=== PATIENT | male | born 1995 | race Caucasian/White ===

== ENCOUNTER 2018-02-26 20:02 | Emergency (ER) | payer OTHER ==
[~2018-02-26] VITALS: Ht 175.3 cm; Wt 61.2 kg
[~2018-02-26 20:02] MED LIST: IBUPROFEN 400400 M2 PO; METADATE CD40 MG PO; NOHOMEMEDICATIONS; ZOFRAN ODT4 MG PO
[2018-02-26] MEDS ORDERED: IBUPROFEN 800800 M1 PO (21:07)
[2018-02-26] MEDS ORDERED: HYDROCODONE-AP1 EAC6 PO (21:07)
[2018-02-26 21:23] VITALS: BP 110/72
== END 2018-02-26 21:24 | disposition home or self-care (01) ==
LOC: ER 20:02
DX: S40.021A Contusion of right upper arm, initial encounter (principal); F17.210 Nicotine dependence, cigarettes, uncomplicated; V89.2XXA Person injured in unspecified motor-vehicle accident, traffic, initial encounter; Y93.89 Activity, other specified; Y92.89 Other specified places as the place of occurrence of the external cause; Y99.8 Other external cause status

== ENCOUNTER 2018-11-21 04:23 | Emergency (ER) | payer OTHER ==
[~2018-11-21] VITALS: Ht 180.3 cm; Wt 61.2 kg
[~2018-11-21 04:23] MED LIST changes: +HYDROCODONE-AP1 EAC6 PO; +IBUPROFEN 800800 M1 PO
[2018-11-21 04:58] LABS: HEMATOCRIT 45.5 % (42.0-52.0); HEMOGLOBIN 15.4 gm/dL (14.0-18.0); MCH 31.6 pg (26.0-34.0); MCHC 33.8 g/dL (28.0-37.0); MCV 93.5 fL (80.0-100.0); PLATELET COUNT 284 thou/uL (150-400); RBC 4.86 mil/uL (4.50-6.00); RDW 13.4 % (10.5-14.5); WBC 7.6 thou/uL (4.0-11.0)
[2018-11-21 05:07] LABS: CALCIUM 9.2 mg/dL (8.5-10.1); CREATININE 0.9 mg/dL (0.7-1.3); POTASSIUM 3.9 mmol/L (3.5-5.1)
[2018-11-21 05:12] LABS: ALBUMIN 4.4 g/dL (3.4-5.0); TOTAL BILIRUBIN 0.8 mg/dL (<0.1-1.0); TOTAL PROTEIN 8.1 g/dL (6.4-8.2)
[2018-11-21 05:18] LABS: ABSOLUTE NEUTROPHILS 4.9 thou/uL (1.4-8.2)
[2018-11-21 05:41] LABS: URINE COLOR YELLOW
[2018-11-21 05:42] LABS: URINE BILIRUBIN NEGATIVE (Negative); URINE BLOOD TRACE (Negative); URINE CLARITY CLOUDY; URINE GLUCOSE-RANDOM* NEGATIVE (Negative); URINE KETONES NEGATIVE (Negative); URINE LEUKOCYTES-REFLEX NEGATIVE (Negative); URINE NITRITE-REFLEX NEGATIVE (Negative); URINE PROTEIN (DIPSTICK) NEGATIVE (Negative); URINE SPECIFIC GRAVITY >= 1.030 (1.005-1.035); URINE UROBILINOGEN 0.2 E.U./dl (0.2-1.0)
[2018-11-21 06:28] VITALS: BP 122/72
== END 2018-11-21 06:29 | disposition home or self-care (01) ==
LOC: ER 04:23
PROVIDERS: Emergency Medicine
DX: K59.00 Constipation, unspecified (principal); R19.7 Diarrhea, unspecified; I31.9 Disease of pericardium, unspecified; R11.0 Nausea; F17.210 Nicotine dependence, cigarettes, uncomplicated; F90.9 Attention-deficit hyperactivity disorder, unspecified type